=== PATIENT | male | born 1990 | race Hispanic/Latino ===

== ENCOUNTER 2021-09-08 09:51 | Emergency (ER) | payer OTHER, SELFPAY ==
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
[2021-09-08 09:58] VITALS: BP 126/83; PULSE 59; RESP 16; TEMP 36.4; O2SAT 99
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
[2021-09-08] MEDS: KETOROLAC (*BKC) 60 MG/2 ML VIAL IM (10:35)
[2021-09-08 11:56] VITALS: BP 108/70; PULSE 56; RESP 12; O2SAT 96
== END 2021-09-08 11:58 | disposition home or self-care (01) ==
PROVIDERS: Emergency Provider Emergency Medicine
DX: R07.89 Other chest pain (principal); F17.200 Nicotine dependence, unspecified, uncomplicated; M47.814 Spondylosis without myelopathy or radiculopathy, thoracic region; V49.40XA Driver injured in collision with unspecified motor vehicles in traffic accident, initial encounter
CPT/HCPCS: 71046; 72125; 72128; 96372; 99284; J1885